=== PATIENT | male | born 1955 | race African-American/Black ===

== ENCOUNTER 2016-10-24 08:30 | Day surgery (SDC) | payer MEDICARE, MEDICAID ==
[2016-10-24 09:06] LABS: PROTHROMBIN TIME 11.8 SEC (11.4-15.4)
[2016-10-24 09:07] LABS: PARTIAL THROMBOPLASTIN TIME 27.2 SEC (23.5-35.8)
[2016-10-24] MEDS ORDERED: OXYCODONE-ACETAMINOPHEN 5-325 MG TABLET ONE (11:28)
[2016-10-24] MEDS ORDERED: DEXTROSE 5%-1/2 NORMAL SALINE 1,000 ML IV PRN (11:50)
[2016-10-24 13:28] VITALS: BP 126/65
== END 2016-10-24 13:40 | disposition home or self-care (01) ==
LOC: RAD 08:30
PROVIDERS: ATTEND Neurological Surgery
PROC: B01BYZZ Fluoroscopy of Spinal Cord using Other Contrast (ICD-10-PCS; principal; 2016-10-24)
DX: M48.02 Spinal stenosis, cervical region (principal); M12.88 Other specific arthropathies, not elsewhere classified, other specified site; M48.06 Spinal stenosis, lumbar region; Z79.01 Long term (current) use of anticoagulants; Z79.82 Long term (current) use of aspirin; Z79.899 Other long term (current) drug therapy
CPT/HCPCS: 36415; 85610; 85730; 72270; 72126; 72132; A9270

== ENCOUNTER 2016-10-24 22:29 | Emergency (ER) | payer MEDICARE, MEDICAID ==
[2016-10-25] MEDS ORDERED: HYDROMORPHONE HCL INJ/PF 2 MG/ML AMPULE IM ONE (05:16)
[2016-10-25] MEDS ORDERED: ONDANSETRON 4 MG TAB.RAPDIS PO ONE (05:17)
[2016-10-25] MEDS ORDERED: HYDROCODONE/ACETAMINOPHEN 5-325 MG 6 TAB/DSPK PO PRN ×2 (05:17→05:36)
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
[2016-10-25] MEDS ORDERED: ONDANSETRON ODT 4 MG TAB (6 TAB/DSPK) PO PRN (05:43)
[2016-10-25 06:04] VITALS: BP 118/64
== END 2016-10-25 06:04 | disposition home or self-care (01) ==
LOC: ER 22:29
DX: G89.29 Other chronic pain (principal); M54.5 Low back pain; M25.551 Pain in right hip; R51 Headache; I25.2 Old myocardial infarction; I10 Essential (primary) hypertension; Z98.890 Other specified postprocedural states; Z98.1 Arthrodesis status
CPT/HCPCS: 99283; 96372; A9270 ×3; J1170; S0119